=== PATIENT | female | born 2000 | race Caucasian/White ===

== ENCOUNTER 2025-02-16 00:33 | Emergency (ER) | payer OTHER ==
[~2025-02-16] VITALS: Ht 167.6 cm; Wt 67.7 kg
[2025-02-16 00:45] VITALS: TEMP 36.8; O2SAT 99
[2025-02-16] MEDS: KETOROLAC 15MG/ML VIAL IM ONE (01:09)
[2025-02-16] MEDS ORDERED: OFLO5DRO4 RIGHT EAR (01:34)
[2025-02-16] MEDS ORDERED: NAPR-1176 MT (01:34)
[2025-02-16] MEDS ORDERED: CETI5TAB5 MT (01:34)
[2025-02-16 02:00] VITALS: BP 128/85; PULSE 80; RESP 16; O2SAT 100
== END 2025-02-16 02:04 | disposition home or self-care (01) ==
LOC: ER 00:33
DX: H60.8X1 Other otitis externa, right ear (principal); Z79.1 Long term (current) use of non-steroidal anti-inflammatories (NSAID)
CPT/HCPCS: 99283; 81025; 96372; J1885